=== PATIENT | male | born 1970 | race Hispanic/Latino ===

== ENCOUNTER 2017-07-31 12:15 | Emergency (ER) | payer SELFPAY ==
--- NOTE | 2017-07-31 12:42 | EDPHYS ---
Physician Documentation [facility] Name: Gabriel Lan Age: 46 yrs Sex: Male : 1970 Arrival Date: 07/31/2017 Time: 12:16 Bed 23 Private MD: ED Physician Yemi Iyer HPI: 07/31 14:45 This 46 yrs old Male presents to ER via Ambulatory with complaints of Sore snw Throat, Congestion, Ear Pain. 14:45 The patient presents with sore throat. The patient describes throat pain as dry, snw scratchy. Onset: The symptoms/episode began/occurred suddenly, 4 day(s) ago, and became persistent. Modifying factors: The symptoms are alleviated by nothing. Associated signs and symptoms: Pertinent positives: dysphagia, flu-like symptoms. The patient has not experienced similar symptoms in the past. The patient has not recently seen a physician. Historical: - Allergies: 12:19 No Known Allergies; la1 - PMHx: 12:19 None; la1 - Immunization history:: Adult Immunizations up to date. - Social history:: Smoking status: Patient uses tobacco products, smokes one pack cigarettes per day. ROS: 14:43 Eyes: Negative for injury, pain, redness, and discharge. snw 14:43 Neck: Negative for injury, pain, and swelling, Cardiovascular: Negative for chest pain, palpitations, and edema, Respiratory: Negative for shortness of breath, cough, wheezing, and pleuritic chest pain, Abdomen/GI: Negative for abdominal pain, nausea, vomiting, diarrhea, and constipation, Back: Negative for injury and pain, : Negative for injury, bleeding, discharge, and swelling, MS/Extremity: Negative for injury and deformity, Skin: Negative for injury, rash, and discoloration, Neuro: Negative for headache, weakness, numbness, tingling, and seizure. 14:43 Constitutional: Positive for body aches, malaise. 14:43 ENT: Positive for ear pain, sore throat. Exam: 14:43 Constitutional: This is a well developed, well nourished patient who is awake, alert, snw and in no acute distress. Head/Face: Normocephalic, atraumatic. Eyes: Pupils equal round and reactive to light, extra-ocular motions intact. Lids and lashes normal. Conjunctiva and sclera are non-icteric and not injected. Cornea within normal limits. Periorbital areas with no swelling, redness, or edema. Neck: Trachea midline, no thyromegaly or masses palpated, and no cervical lymphadenopathy. Supple, full range of motion without nuchal rigidity, or vertebral point tenderness. No Meningismus. Chest/axilla: Normal chest wall appearance and motion. Nontender with no deformity. No lesions are appreciated. Cardiovascular: Regular rate and rhythm with a normal S1 and S2. No gallops, murmurs, or rubs. Normal PMI, no JVD. No pulse deficits. Respiratory: Lungs have equal breath sounds bilaterally, clear to auscultation and percussion. No rales, rhonchi or wheezes noted. No increased work of breathing, no retractions or nasal flaring. Abdomen/GI: Soft, non-tender, with normal bowel sounds. No distension or tympany. No guarding or rebound. No evidence of tenderness throughout. Back: No spinal tenderness. No costovertebral tenderness. Full range of motion. Skin: Warm, dry with normal turgor. Normal color with no rashes, no lesions, and no evidence of cellulitis. MS/ Extremity: Pulses equal, no cyanosis. Neurovascular intact. Full, normal range of motion. Neuro: Awake and alert, GCS 15, oriented to person, place, time, and situation. Cranial nerves II-XII grossly intact. Motor strength 5/5 in all extremities. Sensory grossly intact. Cerebellar exam normal. Normal gait. 14:43 ENT: External ear(s): are unremarkable, Ear canal(s): are normal, TM's: are normal, Nose: Nasal septum: is midline, Nasal mucosa: edematous, Mouth: is normal, Posterior pharynx: erythema, that is moderate, Voice: is normal. Vital Signs: 12:19 BP 174 / 97; Pulse 105; Resp 19; Temp 97.1(TE); Pulse Ox 100% on R/A; Weight 195.04 kg; la1 Height 6 ft. 4 in. (193.04 cm); 12:19 Body Mass Index 52.34 (195.04 kg, 193.04 cm) la1 MDM: 12:31 Patient medically screened. snw 14:44 Data reviewed: vital signs, nurses notes. Data interpreted: Pulse oximetry: on room air snw is 100 %. Interpretation: normal. Counseling: I had a detailed discussion with the patient and/or guardian regarding: the historical points, exam findings, and any diagnostic results supporting the discharge/admit diagnosis, the presence of at least one elevated blood pressure reading (>120/80) during this emergency department visit, lab results, the need for outpatient follow up, to return to the emergency department if symptoms worsen or persist or if there are any questions or concerns that arise at home. Special discussion: I have referred the patient to see his PCP for further evaluation of high blood pressure. Based on the history and exam findings, there is no indication for further emergent testing or inpatient evaluation. 07/31 12:29 Order name: Strep; Complete Time: 12:51 snw Administered Medications: 12:52 Drug: predniSONE 40 mg Route: PO; aj 12:52 Follow up: Response: Medication administered at discharge. aj 12:52 Drug: Pepcid 20 mg Route: PO; aj 12:52 Follow up: Response: Medication administered at discharge. aj 12:52 Drug: Zithromax 500 mg Route: PO; aj 12:52 Follow up: Response: Medication administered at discharge. aj Disposition: 14:59 Co-signature as Attending Physician, Yemi Iyer MD I agree with the assessment and kdr plan of care. Disposition: 07/31/17 12:41 Discharged to Home. Impression: Acute pharyngitis, Essential (primary) hypertension. - Condition is Stable. - Discharge Instructions: Hypertension, Pharyngitis, Smoking Cessation, DASH Eating Plan, Rehydration, Adult, Managing Your High Blood Pressure. - Prescriptions for Prednisone 20 mg Oral Tablet - take 1 tablet by ORAL route 2 times per day for 5 days; 10 tablet. Zithromax 500 mg Oral Tablet - take 1 tablet by ORAL route once daily for 5 days; 5 tablet. Tylenol- Codeine #3 300-30 mg Oral Tablet - take 2 tablets by ORAL route every 6 hours As needed; 15 tablet. - Work release form, Medication Reconciliation Form, Thank You Letter, Antibiotic Education, Prescription Opioid Use form. - Follow up: Private Physician; When: 2 - 3 days; Reason: Recheck today's complaints, Continuance of care, Re-evaluation by your physician. Follow up: Emergency Department; When: As needed; Reason: Worsening of condition. Signatures: Dispatcher [employer] Mandy Tierney, RN RN Yemi Quick MD MD kdr Therrien, Shelly, POLICE CADET-C POLICE CADET-Csnw Craig Cruz RN RN la1
--- NOTE | 2017-07-31 12:42 | ER ---
Nurse's Notes [facility] Name: Gabriel Lan Age: 46 yrs Sex: Male : 1970 Arrival Date: 07/31/2017 Time: 12:16 Bed 23 Private MD: Diagnosis: Acute pharyngitis;Essential (primary) hypertension Presentation: 07/31 12:19 Presenting complaint: Patient states: I have been having a sore throat and pain with la1 swallowing for the last few days. Transition of care: patient was not received from another setting of care. Onset of symptoms. Care prior to arrival: None. 12:19 Method Of Arrival: Ambulatory la1 12:19 Acuity: KELVIN 4 la1 Historical: - Allergies: 12:19 No Known Allergies; la1 - PMHx: 12:19 None; la1 - Immunization history:: Adult Immunizations up to date. - Social history:: Smoking status: Patient uses tobacco products, smokes one pack cigarettes per day. Screenin:30 Abuse screen: Denies threats or abuse. Denies injuries from another. Nutritional aj screening: No deficits noted. Tuberculosis screening: No symptoms or risk factors identified. Fall Risk None identified. Assessment: 12:30 General: Appears in no apparent distress. comfortable, Behavior is calm, cooperative, aj appropriate for age. Pain: Complains of pain in left aspect of posterior pharynx and right aspect of posterior pharynx. Neuro: Level of Consciousness is awake, alert, obeys commands, Oriented to person, place, time, situation. Respiratory: Airway is patent Respiratory effort is even, unlabored, Respiratory pattern is regular, symmetrical, Breath sounds are clear bilaterally. EENT: Throat is reddened Reports pain when swallowing. Derm: Skin is intact, is healthy with good turgor, Skin is pink, warm \T\ dry. normal. Vital Signs: 12:19 BP 174 / 97; Pulse 105; Resp 19; Temp 97.1(TE); Pulse Ox 100% on R/A; Weight 195.04 kg; la1 Height 6 ft. 4 in. (193.04 cm); 12:19 Body Mass Index 52.34 (195.04 kg, 193.04 cm) la1 ED Course: 12:16 Patient arrived in ED. as 12:19 Triage completed. la1 12:20 Arm band placed on left wrist. la1 12:21 Mandy Barahona, RN is Primary Nurse. aj 12:29 Becky Guillaume FNP-C is [facility]. snw 12:29 Yemi Iyer MD is Attending Physician. snw 12:30 Patient has correct armband on for positive identification. aj 12:52 No provider procedures requiring assistance completed. Patient did not have IV access aj during this emergency room visit. Administered Medications: 12:52 Drug: predniSONE 40 mg Route: PO; aj 12:52 Follow up: Response: Medication administered at discharge. aj 12:52 Drug: Pepcid 20 mg Route: PO; aj 12:52 Follow up: Response: Medication administered at discharge. aj 12:52 Drug: Zithromax 500 mg Route: PO; aj 12:52 Follow up: Response: Medication administered at discharge. aj Outcome: 12:41 Discharge ordered by MD. snw 12:52 Discharged to home ambulatory. aj 12:52 Condition: good 12:52 Discharge instructions given to patient, Instructed on discharge instructions, follow up and referral plans. medication usage, Demonstrated understanding of instructions, follow-up care, medications, Prescriptions given X 3. 12:53 Patient left the ED. aj Signatures: Mandy Barahona, RN RN Becky Pinedo FNP-C FNP-Lizz Vila Lee, RN RN la1
[2017-07-31] MEDS ORDERED: AZITHROMYCIN 250 MG TAB ONE (13:04)
[2017-07-31] MEDS ORDERED: predniSONE 20 MG TAB ONE (13:04)
[2017-07-31] MEDS ORDERED: FAMOTIDINE 20 MG TAB ONE (13:04)
== END 2017-07-31 12:53 | disposition home or self-care (01) ==
LOC: ER 12:15
DX: J02.9 Acute pharyngitis, unspecified (principal); I10 Essential (primary) hypertension; F17.210 Nicotine dependence, cigarettes, uncomplicated
CPT/HCPCS: 87070; 87081; 99283; J7512

== ENCOUNTER 2018-12-29 17:41 | Emergency (ER) | payer SELFPAY ==
[2018-12-29 18:16] LABS: Urine Blood NEGATIVE (NEG); Urine Glucose NEGATIVE (NEG); Urine Protein NEGATIVE (NEG)
[2018-12-29] MEDS ORDERED: ONDANSETRON 4 MG/2 ML VIAL ONE (18:40)
[2018-12-29] MEDS ORDERED: FENTANYL CITR 100 MCG/2 ML ONE (18:40)
[2018-12-29] MEDS ORDERED: NA CHLORIDE 0.9% 1,000 ML ONE (18:41)
[2018-12-29 18:56] LABS: Absolute Lymphocytes (CBC) 1.8 K/uL (0.7-4.9); Basophils % 1.1 % (0-1.3); Hematocrit 45.7 % (39.6-49.0); Lymphocytes % 19.4 % (15.3-44.8); MPV 9.1 fL (7.6-11.3); RBC Red Blood Cell Count 4.77 M/uL (4.33-5.43)
[2018-12-29 19:21] LABS: Albumin 3.3 g/dL (3.4-5.0); Bilirubin Direct 0.1 mg/dL (0-0.2); Bilirubin Total 0.4 mg/dL (0.2-1.0); Potassium 4.3 mmol/L (3.5-5.1); Protein, Total 7.2 g/dL (6.4-8.2)
--- NOTE | 2018-12-29 20:05 | RAD REPORT ---
EXAM DESCRIPTION: CT - Abdomen Pelvis W Contrast - 12/29/2018 7:41 pm CLINICAL HISTORY: Abdominal pain with nausea. COMPARISON: none. TECHNIQUE: Computed axial tomography of the abdomen pelvis was obtained. 100 cc Isovue-300 was admin istered intravenously. Oral contrast was not requested which limits evaluation of bowel. All CT scans are performed using dose optimization technique as appropriate and may include automated exposure control or mA/KV adjustment according to patient size. FINDINGS: Fatty liver The Spleen, pancreas, and adrenals appear unremarkable. Tiny bilateral nonobstructing renal calculi There is no evidence of diverticulitis. Spondylosis involves lumbar spine resulting spinal stenosis Tiny umbilical hernia IMPRESSION: Tiny bilateral nonobstructing renal calculi .
--- NOTE | 2018-12-29 20:43 | ER ---
Nurse's Notes [facility] Name: Gabriel Lan Age: 48 yrs Sex: Male : 1970 Arrival Date: 12/29/2018 Time: 17:43 Bed 20 Private MD: Diagnosis: Low back pain Presentation: 12/29 17:44 Presenting complaint: Patient states: "right kidney pain started 5 days ago." Denies sv hematuria, difficulty urinating. Transition of care: patient was not received from another setting of care. Onset of symptoms was December 24, 2018. Risk Assessment: Do you want to hurt yourself or someone else? Patient reports no desire to harm self or others. Care prior to arrival: None. 17:44 Method Of Arrival: Ambulatory sv 17:44 Acuity: KELVIN 3 sv 19:00 Initial Sepsis Screen: Does the patient meet any 2 criteria? No. Patient's initial rr5 sepsis screen is negative. Does the patient have a suspected source of infection? No. Patient's initial sepsis screen is negative. Triage Assessment: 17:44 General: Appears in no apparent distress. uncomfortable, obese, Behavior is calm, sv cooperative, appropriate for age. Pain: Complains of pain in right low back Pain currently is 6 out of 10 on a pain scale. Neuro: Level of Consciousness is awake, alert, obeys commands, Oriented to person, place, time, situation, Gait is steady. Respiratory: Respiratory effort is even, unlabored, Respiratory pattern is regular, symmetrical. : Denies burning with urination, inability to void. Musculoskeletal: Range of motion: intact in all extremities. Historical: - Allergies: 17:45 No Known Allergies; sv - PMHx: 17:45 None; sv - PSHx: 17:45 None; sv - Immunization history:: Adult Immunizations up to date. - Social history:: Smoking status: Patient uses tobacco products, smokes one pack cigarettes per day. - Ebola Screening: : No symptoms or risks identified at this time. Screenin:03 Abuse screen: Denies threats or abuse. Denies injuries from another. Nutritional aj1 screening: No deficits noted. Tuberculosis screening: No symptoms or risk factors identified. 19:10 Fall Risk IV access (20 points). Total Keen Fall Scale indicates No Risk (0-24 pts). rr5 Assessment: 18:03 General: Appears in no apparent distress. uncomfortable, Behavior is calm, cooperative, aj1 appropriate for age. Pain: Complains of pain in right low back Pain does not radiate. Pain currently is 8 out of 10 on a pain scale. Neuro: Level of Consciousness is awake, alert, obeys commands, Oriented to person, place, time, situation. Cardiovascular: Patient's skin is warm and dry. Respiratory: Airway is patent Respiratory effort is even, unlabored, Respiratory pattern is regular, symmetrical. GI: No signs and/or symptoms were reported involving the gastrointestinal system. : Denies burning with urination, urinary frequency. EENT: No signs and/or symptoms were reported regarding the EENT system. Derm: No signs and/or symptoms reported regarding the dermatologic system. Skin is pink, warm \\T\\ dry. normal. Musculoskeletal: No signs and/or symptoms reported regarding the musculoskeletal system. Circulation, motion, and sensation intact. 18:35 Reassessment: HLOLIE Erickson at bedside to evaluate patient. Patient reports that his pain is aj1 worse, appears diaphoretic. Patient was moved to ER bed 20. During transport patient began to c/o nausea. Notified HOLLIE Erickson. 18:40 Reassessment: received report from SERG Garner. em 19:00 General: Appears in no apparent distress. comfortable, Behavior is calm, cooperative, rr5 appropriate for age. 19:00 Pain: Complains of pain in right low back Pain does not radiate. Pain currently is 5 rr5 out of 10 on a pain scale. Quality of pain is described as aching, Pain began gradually, Is intermittent. Neuro: Level of Consciousness is awake, alert, obeys commands, Oriented to person, place, time, situation, Appropriate for age. Cardiovascular: Capillary refill < 3 seconds Patient's skin is warm and dry. Respiratory: Airway is patent Respiratory effort is even, unlabored, Respiratory pattern is regular, symmetrical. GI: No signs and/or symptoms were reported involving the gastrointestinal system. : No signs and/or symptoms were reported regarding the genitourinary system. EENT: No signs and/or symptoms were reported regarding the EENT system. Derm: Skin is intact, Skin is pink, warm \\T\\ dry. normal. Musculoskeletal: Circulation, motion, and sensation intact. Capillary refill < 3 seconds. 20:10 Reassessment: Patient appears in no apparent distress at this time. Patient and/or rr5 family updated on plan of care and expected duration. Pain level reassessed. Patient is alert, oriented x 3, equal unlabored respirations, skin warm/dry/pink. awaiting for result. 20:51 Reassessment: Patient appears in no apparent distress at this time. Patient is alert, rr5 oriented x 3, equal unlabored respirations, skin warm/dry/pink. discharge instruction given and explained without complaints made. Patient states feeling better. Patient states symptoms have improved. Vital Signs: 17:45 BP 170 / 85; Pulse 77; Resp 20; Temp 98.5; Pulse Ox 100% ; Weight 208.65 kg; Height 6 sv ft. 4 in. (193.04 cm); Pain 6/10; 18:45 BP 131 / 77; Pulse 71; Resp 20; Pulse Ox 95% on R/A; Pain 7/10; em 19:00 BP 150 / 72; Pulse 70; Resp 16; Temp 98.4; Pulse Ox 99% ; Pain 5/10; rr5 20:00 BP 165 / 89; Pulse 81; Resp 17; Pulse Ox 98% ; rr5 20:50 BP 155 / 83; Pulse 75; Resp 16; Temp 98.1; Pulse Ox 99% ; Pain 5/10; rr5 17:45 Body Mass Index 55.99 (208.65 kg, 193.04 cm) sv ED Course: 17:43 Patient arrived in ED. mr 17:45 Triage completed. sv 17:45 Arm band placed on. sv 18:03 Laura Ellsworth, RN is Primary Nurse. aj1 18:03 Patient has correct armband on for positive identification. Bed in low position. Call aj1 light in reach. 18:03 No provider procedures requiring assistance completed. aj1 18:06 Dre Fisher PA is PHCP. jr8 18:06 Yemi Iyer MD is Attending Physician. jr8 18:50 Radiology exam delayed due to lab results not completed at this time. (BUN/Creatinine). vm2 19:[address] vm2 19:41 CT Abd/Pelvis - IV Contrast Only In Process Unspecified. EDMS 19:41 CT completed. Patient tolerated procedure well. Patient moved back from CT. vm2 20:52 IV discontinued, intact, bleeding controlled, No redness/swelling at site. Pressure rr5 dressing applied. Administered Medications: 18:43 Drug: Zofran 4 mg Route: IVP; Site: left antecubital; iw 19:40 Follow up: Response: No adverse reaction rr5 18:45 Drug: fentaNYL (PF) 75 mcg Route: IVP; Site: left antecubital; iw 19:45 Follow up: Response: No adverse reaction rr5 19:45 Follow up: Response: RASS: Alert and Calm (0) rr5 18:52 Drug: NS 0.9% 1000 ml Route: IV; Rate: 1 bolus; Site: right antecubital; em 20:53 Follow up: Response: No adverse reaction; IV Status: Completed infusion; IV Intake: rr5 1000ml Intake: 20:53 IV: 1000ml; Total: 1000ml. rr5 Outcome: 20:41 Discharge ordered by . jr8 20:52 Discharged to home ambulatory. rr5 20:52 Condition: improved 20:52 Discharge instructions given to patient, Instructed on discharge instructions, follow up and referral plans. medication usage, Demonstrated understanding of instructions, follow-up care, medications, Prescriptions given X 2. 20:54 Patient left the ED. rr5 Signatures: Dispatcher [employer] Laura Gomez RN RN Ruthann Adhikari, RN SERG Guevara, Re Gallagher, Chavez, TYPE COPY EXAMINER TYPE COPY EXAMINER Savannah Torres, SERG ULRICH Dre Fisher PA PA jr8 Carolina Moreland [facility] Soren Desai RN RN rr5
--- NOTE | 2018-12-29 20:43 | EDPHYS ---
Physician Documentation [facility] Name: Gabriel Lan Age: 48 yrs Sex: Male : 1970 Arrival Date: 12/29/2018 Time: 17:43 Bed 20 Private MD: ED Physician Yemi Iyer HPI: 12/29 19:40 This 48 yrs old Male presents to ER via Ambulatory with complaints of Back jr8 Pain. 19:40 The patient presents with pain that is acute, with no known mechanism of injury. The jr8 symptoms are located in the low back. Onset: The symptoms/episode began/occurred acutely, 2 day(s) ago, and became worse and became persistent. The pain does not radiate. Associated signs and symptoms: Pertinent positives: nausea. The problem was sustained from unknown cause. Modifying factors: The patient symptoms are alleviated by nothing, the patient symptoms are aggravated by nothing. Severity of symptoms: At their worst the symptoms were moderate, in the emergency department the symptoms are unchanged. The patient has not experienced similar symptoms in the past. The patient has not recently seen a physician. Historical: - Allergies: 17:45 No Known Allergies; sv - PMHx: 17:45 None; sv - PSHx: 17:45 None; sv - Immunization history:: Adult Immunizations up to date. - Social history:: Smoking status: Patient uses tobacco products, smokes one pack cigarettes per day. - Ebola Screening: : No symptoms or risks identified at this time. ROS: 19:40 Eyes: Negative for injury, pain, redness, and discharge, ENT: Negative for injury, jr8 pain, and discharge, Neck: Negative for injury, pain, and swelling, Cardiovascular: Negative for chest pain, palpitations, and edema, Respiratory: Negative for shortness of breath, cough, wheezing, and pleuritic chest pain, MS/Extremity: Negative for injury and deformity, Skin: Negative for injury, rash, and discoloration, Neuro: Negative for headache, weakness, numbness, tingling, and seizure. 19:40 Abdomen/GI: Positive for nausea, Negative for abdominal pain, vomiting, diarrhea, constipation, abdominal cramps, abdominal distension. 19:40 Back: Positive for pain at rest, of the right low back. Exam: 19:40 Eyes: Pupils equal round and reactive to light, extra-ocular motions intact. Lids and jr8 lashes normal. Conjunctiva and sclera are non-icteric and not injected. Cornea within normal limits. Periorbital areas with no swelling, redness, or edema. ENT: Nares patent. No nasal discharge, no septal abnormalities noted. Tympanic membranes are normal and external auditory canals are clear. Oropharynx with no redness, swelling, or masses, exudates, or evidence of obstruction, uvula midline. Mucous membranes moist. Neck: Trachea midline, no thyromegaly or masses palpated, and no cervical lymphadenopathy. Supple, full range of motion without nuchal rigidity, or vertebral point tenderness. No Meningismus. Cardiovascular: Regular rate and rhythm with a normal S1 and S2. No gallops, murmurs, or rubs. Normal PMI, no JVD. No pulse deficits. Respiratory: Lungs have equal breath sounds bilaterally, clear to auscultation and percussion. No rales, rhonchi or wheezes noted. No increased work of breathing, no retractions or nasal flaring. Abdomen/GI: Soft, non-tender, with normal bowel sounds. No distension or tympany. No guarding or rebound. No evidence of tenderness throughout. Back: No spinal tenderness. No costovertebral tenderness. Full range of motion. Skin: Warm, diaphoretic with normal turgor. Normal color with no rashes, no lesions, and no evidence of cellulitis. MS/ Extremity: Pulses equal, no cyanosis. Neurovascular intact. Full, normal range of motion. Neuro: Awake and alert, GCS 15, oriented to person, place, time, and situation. Cranial nerves II-XII grossly intact. Motor strength 5/5 in all extremities. Sensory grossly intact. Cerebellar exam normal. Normal gait. 19:40 Constitutional: The patient appears alert, awake, in obvious pain, uncomfortable. Vital Signs: 17:45 BP 170 / 85; Pulse 77; Resp 20; Temp 98.5; Pulse Ox 100% ; Weight 208.65 kg; Height 6 sv ft. 4 in. (193.04 cm); Pain 6/10; 18:45 BP 131 / 77; Pulse 71; Resp 20; Pulse Ox 95% on R/A; Pain 7/10; em 19:00 BP 150 / 72; Pulse 70; Resp 16; Temp 98.4; Pulse Ox 99% ; Pain 5/10; rr5 20:00 BP 165 / 89; Pulse 81; Resp 17; Pulse Ox 98% ; rr5 20:50 BP 155 / 83; Pulse 75; Resp 16; Temp 98.1; Pulse Ox 99% ; Pain 5/10; rr5 17:45 Body Mass Index 55.99 (208.65 kg, 193.04 cm) sv MDM: 18:23 Patient medically screened. 8 20:40 Differential diagnosis: Abdominal Aortic Aneurysm Hydronephrosis Neoplasm jr8 Pyelonephritis ruptured disc, sprain, Ureterolithiasis vertebral fracture, colitis, appendicitis. Data reviewed: vital signs, nurses notes, lab test result(s), radiologic studies, CT scan. Data interpreted: Pulse oximetry: on room air is 99 %. Interpretation: normal. Counseling: I had a detailed discussion with the patient and/or guardian regarding: the historical points, exam findings, and any diagnostic results supporting the discharge/admit diagnosis, lab results, radiology results, the need for outpatient follow up, a family practitioner, to return to the emergency department if symptoms worsen or persist or if there are any questions or concerns that arise at home. Response to treatment: the patient's symptoms have markedly improved after treatment. 12/29 17:54 Order name: Urine Dipstick--Ancillary (enter results); Complete Time: 18:25 12/29 18:31 Order name: Basic Metabolic Panel; Complete Time: 19:27 [facility] 12/29 18:31 Order name: CBC with Diff 12/29 18:31 Order name: Creatinine for Radiology; Complete Time: 19:27 [facility] 12/29 18:31 Order name: Hepatic Function; Complete Time: 19:27 [facility] 12/29 18:31 Order name: Lipase; Complete Time: 19:27 [facility] 12/29 18:31 Order name: IV Saline Lock; Complete Time: 18:51 [facility] 12/29 18:31 Order name: Labs collected and sent; Complete Time: 18:51 [facility] 12/29 18:31 Order name: CT Abd/Pelvis - IV Contrast Only; Complete Time: 20:30 [facility] 12/29 19:05 Order name: Urine Dipstick-Ancillary (obtain specimen); Complete Time: 19:06 [facility] Administered Medications: 18:43 Drug: Zofran 4 mg Route: IVP; Site: left antecubital; iw 19:40 Follow up: Response: No adverse reaction rr5 18:45 Drug: fentaNYL (PF) 75 mcg Route: IVP; Site: left antecubital; iw 19:45 Follow up: Response: No adverse reaction rr5 19:45 Follow up: Response: RASS: Alert and Calm (0) rr5 18:52 Drug: NS 0.9% 1000 ml Route: IV; Rate: 1 bolus; Site: right antecubital; em 20:53 Follow up: Response: No adverse reaction; IV Status: Completed infusion; IV Intake: rr5 1000ml Disposition: 12/29/18 20:41 Discharged to Home. Impression: Low back pain. - Condition is Stable. - Discharge Instructions: Back Pain, Adult, Musculoskeletal Pain, Heat Therapy. - Prescriptions for Ibuprofen 800 mg Oral Tablet - take 1 tablet by ORAL route every 12 hours As needed take with food; 20 tablet. Skelaxin 800 mg Oral Tablet - take 1 tablet by ORAL route every 6 hours As needed; 40 tablet. - Medication Reconciliation Form, Thank You Letter, Antibiotic Education, Prescription Opioid Use form. - Follow up: Private Physician; When: 2 - 3 days; Reason: Recheck today's complaints, Continuance of care, Re-evaluation by your physician. - Problem is new. - Symptoms have improved. Addendum: 01/01/2019 09:32 Co-signature as Attending Physician, Yemi Iyer MD I agree with the assessment and k dr plan of care. Signatures: Dispatcher [employer] Ruthann Farrell RN RN sv Rittger, Kevin, MD MD [facility] Chavez Gallagher, [employer]PER[employer]OR em Savannah Tian, RN SERG Dre Fisher PA PA jr8 Soren Desai, RN RN rr5 Corrections: (The following items were deleted from the chart) 12/29 20:54 20:41 12/29/2018 20:41 Discharged to Home. Impression: Low back pain. Condition is rr5 Stable. Forms are Medication Reconciliation Form, Thank You Letter, Antibiotic Education, Prescription Opioid Use. Follow up: Private Physician; When: 2 - 3 days; Reason: Recheck today's complaints, Continuance of care, Re-evaluation by your physician. Problem is new. Symptoms have improved. jr8
[2018-12-29 21:19] LABS: Blood Morphology Comment NOT SEEN (NOT SEEN); Platelet Estimate ADEQ; Urine White Blood Cell Casts OK
== END 2018-12-29 20:54 | disposition home or self-care (01) ==
LOC: ER 17:41
DX: M54.5 Low back pain (principal); F17.210 Nicotine dependence, cigarettes, uncomplicated
CPT/HCPCS: 36415; 74177; 80048; 80076; 81003; 83690; 85025; 96361; 96374; 96375; 99284; J2405; J3010; J7030; Q9967